=== PATIENT | female | born 1990 | race Caucasian/White ===

== ENCOUNTER → 2016-05-02 | Outpatient (CLI) | payer OTHER ==
[2016-05-05 01:21] LABS: CHLAMYDIA TRACH RNA*** NOT DETECTED (NOT DETECTED); GC (NEIS GONORRHOEAE)RNA** NOT DETECTED (NOT DETECTED)
== END | disposition home or self-care (01) ==
LOC: C.LABSPEC 11:06
PROVIDERS: ATTEND Obstetrics & Gynecology
DX: A74.9 Chlamydial infection, unspecified (principal)